=== PATIENT | male | born 2000 | race Caucasian/White ===

== ENCOUNTER 2025-01-25 15:10 | Emergency (ER) | payer SELFPAY ==
[2025-01-25 15:22] VITALS: BP 118/78; PULSE 91; TEMP 36.6; O2SAT 99; BMI 22.5
--- NOTE | 2025-01-25 16:28 | ED.GENADUL1 ---
HPI HPI - General Adult General Chief complaint: Upper Respiratory Infection Stated complaint: SORE THROAT Time Seen by Provider: 01/25/25 15:28 Source: patient Mode of arrival: walk-in Limitations: no limitations History of Present Illness Onset (ago): week(s) (Patient presents emergency department, ambulatory with chief complaint of sore throat for over 1 week. He states it has taken his wanting to eat away. He does not know if he possibly has COVID or the flu or strep throat. He denies any known sick contacts. He denies any fevers chills or sweats.) Radiation: Reports non-radiation Severity: mild Quality: Reports aching and constant Pain Consistency: Reports constant Relieving factors: Reports rest Exacerbating factors: Reports none Associated symptoms: Reports loss of appetite (Nausea) Treatments prior to arrival: Reports other (Soaking in the tub) Related Data Allergies Allergy/AdvReac Type Severity Reaction Status Date / Time No Known Drug Allergies Allergy Verified 01/25/25 15:25 Opioid HPI Opioid Management Opioid side effects: none Review of Systems ROS Ears, nose, mouth, and throat Reports: throat pain (Patient states this is already starting to resolve, he wants to be checked ) [facility] Social History (Updated 01/25/25 @ 17:38 by RAJEEV Mccormack) Non-prescribed substance use: former substance user and opiods/painkillers Little interest or pleasure in doing things: not at all Feeling down, depressed, or hopeless: not at all Exam Constitutional Vital Signs, click to edit/add: Last Vital Signs Temp 97.9 F 01/25/25 15:22 Pulse 91 H 01/25/25 15:22 Resp 18 01/25/25 15:22 BP 118/78 01/25/25 15:22 Pulse Ox 99 01/25/25 15:22 O2 Del Method Room Air 01/25/25 15:22 Documenting provider has reviewed patient's vital signs: yes Common normals: no apparent distress General appearance: cooperative, comfortable and well kempt Orientation/consciousness: Yes awake, Yes oriented to person, Yes oriented to place and Yes oriented to time HENND Common normals: normocephalic, head/scalp atraumatic, hearing grossly normal bilaterally, external ears normal, external nose normal, nasal mucous membranes and turbinates normal, moist oral mucous membranes, oropharynx normal, dentition normal and gingiva normal Head and scalp: normal to inspection, normocephalic and atraumatic Face and sinus: normal facial exam Nose: external nose normal, nares normal, no nasal polyps, nasal mucous membranes and turbinates normal and septum normal External ear: external ears normal External auditory canal: EACs normal Tympanic membrane: TMs normal bilaterally Mouth: oral and palatal mucosa normal Throat: posterior oropharynx normal Eye Common normals: PERRL, EOMs intact bilaterally, conjunctivae normal, no scleral icterus and no papilledema General eye: normal appearance of both eyes and normal light reflex Sclera: sclerae normal Pupil: PERRL Neck & C-Spine Common normals: full ROM and no lymphadenopathy Lymph Lymphatic: no lymphadenopathy noted and no lymphedema noted Chest Common normals: inspection of chest normal Breast/axilla palpation: normal palpation of the axillae Respiratory Common normals: normal respiratory effort, no retractions, no use of accessory muscles and clear to auscultation bilaterally Effort & inspection: able to speak in complete sentences Auscultation: clear to auscultation bilaterally Cardio Common normals: no JVD, regular rate, regular rhythm, S1 normal heart sound, S2 normal heart sound, no gallops, no clicks, no murmurs, no rub and peripheral pulses 2+ throughout Rate: regular rate Rhythm: regular rhythm Heart sounds: S1 normal and S2 normal GI Common normals: Normal to inspection, nondistended, normoactive bowel sounds present, soft to palpation, non-tender, no hepatosplenomegaly, no masses and no bruits Inspection: normal to inspection Auscultation: normoactive bowel sounds Palpation: soft Rectal Exam - Male: deferred Back & Pelvis Common normals: no CVA tenderness Thoracic spine/upper back: normal to inspection Extremity Common normals: normal to inspection, full ROM and no pedal edema General: normal exam except as noted Neuro Common normals: oriented x3, CN's II-XII intact bilaterally, moves all extremities, no focal motor deficits and no sensory deficits noted Sensorium/orientation: awake, alert, oriented to person, oriented to place and oriented to time Meningeal signs: no meningeal signs Cranial nerves: CN normal except as noted Speech: speech normal Gait (neuro): normal gait Motor exam: strength 5/5 throughout Psych Common normals: mental status grossly normal Appearance: grossly normal Attitude: calm and engaged Activity/motor behavior: appropriate eye contact Speech: normal speech Mood and affect: euthymic mood Thought process: normal thought process Thought content: normal thought content Attention/concentration: attention grossly intact Memory/cognition: memory grossly intact Insight: insight good Judgement: judgment good Course Course Hospital Course: Patient was interviewed and examined. Strep test, COVID test, influenza test have all been ordered. Vital Signs Vital signs: Vital Signs Temperature 97.9 F 01/25/25 15:22 Pulse Rate 91 H 01/25/25 15:22 Respiratory Rate 18 01/25/25 15:22 Blood Pressure 118/78 01/25/25 15:22 Pulse Oximetry 99 01/25/25 15:22 Oxygen Delivery Method Room Air 01/25/25 15:22 Temperature 97.9 F 01/25/25 15:22 Pulse Rate 91 H 01/25/25 15:22 Respiratory Rate 18 01/25/25 15:22 Blood Pressure 118/78 01/25/25 15:22 Pulse Oximetry 99 01/25/25 15:22 Oxygen Delivery Method Room Air 01/25/25 15:22 Medical Decision Making MDM Narrative Medical decision making narrative: I discussed the results of the workup with the patient. I discussed the discharge diagnosis, need for close follow-up with the primary care physician. Patient was provided with a list of providers accepting patients for follow-up. I discussed the discharge plan of care. Patient was in agreement with the plan of care. I discussed that there is no indication for antibiotic therapy at this time. Patient was in agreement with the plan of care. Patient will be discharged home in stable condition. He is to return to the emergency department for any further problems or concerns. Differential Diagnosis Differential Diagnosis: Bacterial URI, strep pharyngitis, COVID-19, influenza, viral URI. Medical Records Medical records reviewed: Yes I reviewed the patient's medical records Lab Data Lab results reviewed: Yes I reviewed the patient's lab results Labs: Lab Results 01/25/25 01/25/25 Range/Units 16:00 16:44 Influenza Type A Ag Negative Influenza Type B Ag Negative SARS-CoV-2 Ag (CV2AG) Negative (NEGATIVE) Streptococcus Screen Negative Discharge Plan Discharge Chief Complaint: Upper Respiratory Infection Clinical Impression: Viral infection Patient Disposition: Home, Self-Care Time of Disposition Decision: 17:42 Condition: Good Mode of Transportation: Private Vehicle Print Language: Lao Instructions: Viral Syndrome (ED) Referrals: Physician,Non-Staff, MD [Primary Care Provider] - 1 week
--- OUTSIDE RECORDS SUMMARY | 2025-01-25 16:37 | XMS_ITS | Clinical Summary ---
Author Organization [facility] Address [address], [address] [place] [address] Care Team Providers Care Hr Associate Name Role Phone Gio Vieira MD Primary Care Provider Allergies No known active allergies Medications MedicationSigDispense QuantityRefillsLast FilledStart DateEnd DateStatus methylphenidate (RITALIN) 10 MG tablet Take 20 mg by mouth daily .Active ibuprofen (ADVIL;MOTRIN) 600 MG tablet Take 1 tablet by mouth 4 times daily as needed for Pain 30 tablet ctive Additional Information Patient not taking.Reported on 11/23/2021 tiZANidine (ZANAFLEX) 4 MG tablet Take 1 tablet by mouth every 8 hours as needed (Muscle pain of cramping) 12 tablet 08/04/2021ctive Additional Information Patient not taking.Reported on 11/23/2021 ondansetron (ZOFRAN ODT) 4 MG disintegrating tablet Take 1 tablet by mouth every 8 hours as needed for Nausea or Vomiting 4 tablet 11/23/2021ctive Immunizations ImmunizationAdministration DatesNext DueTDaP, ADACEL (age 10y-64y), BOOSTRIX (age 10y+), IM, 0.5mL01/28/2021 Social History Tobacco UseTypesPacks/DayYears UsedDateSmoking Tobacco: Some DaysCigarettes Smokeless Tobacco: Never Tobacco Cessation:Ready to Q uit: Not Asked; Counseling Given: Not Answered Alcohol UseStandard Drinks/WeekCommentsNo0 (1 standard drink = 0.6 oz pure alcohol)Sex and Gender InformationValueDate RecordedSex Assigned at BirthNot on fileLegal UekJtfq2504/14/2012 9:44 PM ESTGender IdentityNot on fileSexual OrientationNot on file Last Filed Vital Signs Vital SignReadingTime TakenCommentsBlood Kqfwdpnj579/7309/ 2:45 PM EDT [id number] 2:44 PM ZSYNygdltferbm33.9 ??C (98.5 ??F)11/23/2021 2:45 PM EDTRespiratory Mhel996811/23/2021 2:44 PM EDTOxygen Yyoxbrpfzo552%11/23/2021 2:44 PM EDTInhaled Oxygen Concentration--Rorixj17.1 kg (170 lb)11/23/2021 2:44 PM EDT Ilwdja794.5 cm (6' 3 )11/23/2021 2:44 PM EDTBody Mass Index21.2509 2:44 PM EDT Plan of Treatment Not on file Insurance Care Teams Team MemberRelationshipSpecialtyStart DateEnd Gio Vieira MD [address] [place] [phone] PCP - Mfxznnw94/19/13
[2025-01-25 17:24] LABS: SARS-CoV-2 Ag NEGATIVE (NEGATIVE)
== END 2025-01-25 17:57 | disposition home or self-care (01) ==
PROVIDERS: Physician Assistant; Emergency Provider Emergency Medicine
DX: B34.9 Viral infection, unspecified (principal)
CPT/HCPCS: 87070; 87077; 87804; 87811; 87880; 99285